=== PATIENT | male | born 1965 | race Caucasian/White ===

== ENCOUNTER 2017-04-24 02:29 | Emergency (ER) | payer BC ==
[2017-04-24] MEDS ORDERED: TYLENOL 325 MG PO STA (02:41)
[2017-04-24] MEDS ORDERED: Sodium Chloride 0.9% 1000 ML 1,000 ML IV STA (02:43)
[2017-04-24] MEDS ORDERED: TYLENOL 325 MG ONE (02:57)
[2017-04-24] MEDS ORDERED: Sodium Chloride 0.9% 1000 ML 1,000 ML ONE (02:57)
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
[2017-04-24 05:52] VITALS: BP 128/78; PULSE 84; O2SAT 99
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
== END 2017-04-24 05:54 | disposition home or self-care (01) ==
LOC: ED 02:29
DX: S00.03XA Contusion of scalp, initial encounter (principal); S06.0X9A Concussion with loss of consciousness of unspecified duration, initial encounter; S20.219A Contusion of unspecified front wall of thorax, initial encounter; Y04.0XXA Assault by unarmed brawl or fight, initial encounter; W18.09XA Striking against other object with subsequent fall, initial encounter
CPT/HCPCS: 36000; 70450; 71260; 96360; 96365; 99284; A9270-GY